=== PATIENT | male | born 1970 | race African-American/Black ===

== ENCOUNTER 2019-01-23 00:07 | Inpatient (IN) | payer MEDICAID ==
[~2019-01-23] VITALS: Ht 172.7 cm; Wt 120.2 kg
[2019-01-23] MEDS ORDERED: ONDANSETRON HCL 4MG/2ML INJ IV STA (04:14)
[2019-01-23] MEDS ORDERED: MORPHINE SULFATE 4 MG/ML CPJ (NOT FOR IM USE) IV STA (04:14)
[2019-01-23] MEDS ORDERED: SODIUM CHLORIDE 0.9% 1,000 ML IV ONE (04:30)
[2019-01-23 04:55] LABS: CLARITY URINE CLEAR (CLEAR); COLOR URINE YELLOW (YELLOW); KETONES URINE TRACE (NEGATIVE); LEUKOCYTE ESTERASE URINE NEGATIVE (NEGATIVE); NITRITE URINE NEGATIVE (NEGATIVE); OCCULT BLOOD URINE TRACE (NEGATIVE); PH URINE 6.5 (4.5-8.0); PROTEIN URINE TRACE (NEGATIVE); SPECIFIC GRAVITY URINE 1.025 (1.005-1.030)
[2019-01-23 05:17] LABS: BASOPHILS % 0.3 % (0.0-2.0); EOSINOPHILS % 0.1 % (0.0-5.0); HEMATOCRIT. 42.2 % (42.0-52.0); HEMOGLOBIN. 14.3 g/dL (14.0-18.0); LYMPHOCYTES % 8.7 % (20.0-50.0); MEAN CORPUSCULAR VOLUME 91.7 fL (80.0-94.0); NEUTROPHILS % 80.9 % (40.0-76.0); PLATELET 286 x1000/uL (130-400); RED CELL DISTRIBUTION WIDTH 13.3 % (11.6-14.6)
[2019-01-23 05:23] LABS: CHLORIDE 102 mEq/L (98-107)
[2019-01-23] MEDS ORDERED: IOHEXOL-300 100 ML BOTTLE ONE (05:49)
[2019-01-23] MEDS ORDERED: METRONIDAZOLE 500 MG PREMIX 100 ML IV ONE (08:15)
[2019-01-23] MEDS ORDERED: LEVOFLOXACIN 750MG PREMIX 150 ML IV ONE (08:15)
[2019-01-23 10:00] VITALS: BP 112/57
[2019-01-23 10:30] VITALS: BP 112/67
[2019-01-23] MEDS ORDERED: DOCUSATE SODIUM 100MG CAPSULE PO PRN (10:45)
[2019-01-23] MEDS ORDERED: IPRATROPIUM/ALBUTEROL 0.5-3(2.5)MG/3ML NEB INH PRN (10:45)
[2019-01-23] MEDS ORDERED: ACETAMINOPHEN 325MG TABLET PO PRN (10:45)
[2019-01-23] MEDS ORDERED: ZOLPIDEM TARTRATE 5MG TABLET PO PRN (10:45)
[2019-01-23] MEDS ORDERED: GUAIFENESIN 200MG/10ML SUGAR FREE UDC PO PRN (10:45)
[2019-01-23] MEDS ORDERED: ONDANSETRON HCL 4MG/2ML INJ IV PRN (10:45)
[2019-01-23] MEDS ORDERED: CLONIDINE 0.1MG TABLET PO PRN (10:45)
[2019-01-23] MEDS ORDERED: ENOXAPARIN 40MG/0.4ML SYR SUBCUT SCH (10:45)
[2019-01-23] MEDS ORDERED: MAGNESIUM/ALUMINUM HYDROXIDE/SIMETHICONE 30ML UDC PO PRN (10:45)
[2019-01-23] MEDS ORDERED: KETOROLAC 30MG/ML VIAL IV PRN (10:45)
[2019-01-23] MEDS ORDERED: NITROGLYCERIN 0.4MG TABLET SL SL PRN (10:45)
[2019-01-23 12:00] VITALS: BP 116/67
[2019-01-23] MEDS: PIPERACILLIN/TAZOBACTAM 3.375 G in DEXT 5% WATER 100 ML IV SCH ×2 (15:30→21:25)
[2019-01-23 16:00] VITALS: BP 122/69
[2019-01-23] MEDS ORDERED: KCL 20MEQ/100ML PREMIX 100 ML IV SCH (18:30)
[2019-01-23] MEDS ORDERED: DEXTROSE 50% WATER 50ML SYRINGE IV PRN (18:39)
[2019-01-23] MEDS: BLOOD SUGAR DIAGNOSTIC STRIP TEST SCH ×2 (18:42→21:24)
[2019-01-23] MEDS: INSULIN LISPRO 100 UNITS/ML SUBCUT SCH ×2 (18:44→21:00)
[2019-01-23 20:00] VITALS: BP 115/72
[2019-01-23] MEDS: FAMOTIDINE 20MG TABLET PO SCH (20:11)
[2019-01-23] MEDS: ENOXAPARIN 30MG/0.3ML SYR SUBCUT SCH (21:47)
[2019-01-24] VITALS: BP 118/68
[2019-01-24] MEDS: PIPERACILLIN/TAZOBACTAM 3.375 G in DEXT 5% WATER 100 ML IV SCH (03:25)
[2019-01-24 04:00] VITALS: BP 113/65
[2019-01-24 07:11] LABS: BASOPHILS % 0.3 % (0.0-2.0); EOSINOPHILS % 0.2 % (0.0-5.0); HEMOGLOBIN. 13.4 g/dL (14.0-18.0); LYMPHOCYTES % 11.4 % (20.0-50.0); MEAN CORPUSCULAR HEMOGLOBIN 31.1 pg (28.0-32.0); MEAN CORPUSCULAR VOLUME 90.5 fL (80.0-94.0); MEAN PLATELET VOLUME 7.3 fl (7.4-10.4); MONOCYTES % 9.9 % (2.0-8.0); NEUTROPHILS % 78.2 % (40.0-76.0); PLATELET 254 x1000/uL (130-400); RED BLOOD CELL COUNT 4.31 mill/uL (4.7-6.1); RED CELL DISTRIBUTION WIDTH 13.2 % (11.6-14.6)
[2019-01-24] MEDS: BLOOD SUGAR DIAGNOSTIC STRIP TEST SCH ×2 (07:20→12:38)
[2019-01-24 07:28] LABS: CHLORIDE 103 mEq/L (98-107)
[2019-01-24] MEDS: INSULIN LISPRO 100 UNITS/ML SUBCUT SCH ×2 (07:50→12:44)
[2019-01-24 08:00] VITALS: BP 122/76
[2019-01-24] MEDS ORDERED: PIPERACILLIN/TAZOBACTAM 3.375 G in DEXT 5% WATER 100 ML IV SCH ×2 (09:25→10:00)
[2019-01-24] MEDS: FAMOTIDINE 20MG TABLET PO SCH (09:27)
[2019-01-24] MEDS: ENOXAPARIN 30MG/0.3ML SYR SUBCUT SCH (09:29)
[2019-01-24 11:10] VITALS: BP 111/72
[2019-01-24 11:51] VITALS: BP 112/72
== END 2019-01-24 13:31 | disposition home or self-care (01) | DRG 244 ==
LOC: ER 00:27 → 6EST 08:23 → ENRESERV 09:32
PROVIDERS: ADMIT Internal Medicine; ATTEND Internal Medicine
DX: K57.32 Diverticulitis of large intestine without perforation or abscess without bleeding (principal); K76.0 Fatty (change of) liver, not elsewhere classified; E11.9 Type 2 diabetes mellitus without complications; E87.6 Hypokalemia; F10.10 Alcohol abuse, uncomplicated; F12.10 Cannabis abuse, uncomplicated; F17.210 Nicotine dependence, cigarettes, uncomplicated; Z79.4 Long term (current) use of insulin; Z71.6 Tobacco abuse counseling
CPT/HCPCS: 36415; 74177; 82962; 83036; 96361; 96365; 96368; 96375; 99285; J1650; J1815; J1956; J2270; J2405; J2543; J3480; J3490; J7030; J7060; Q9967